=== PATIENT | male | born 1995 | race Caucasian/White ===

== ENCOUNTER 2016-09-26 10:29 | Emergency (ER) | payer OTHER ==
[2016-09-26 10:54] VITALS: BP 124/90; PULSE 56; RESP 16; TEMP 98.4; O2SAT 99
--- NOTE | 2016-09-26 11:29 | UCPHY ---
H & P Time Seen by Provider: 09/26/16 10:44 Patient Type: Established HPI/ROS: 21-year-old male presents complaining of fall at work hitting the back of his head on concrete, now with mild headache initially felt very dazed after his fall. No nausea no vomiting no loss of consciousness. No weakness in legs or arms. Review of systems As per HPI General no fever no chills no weakness HEENT no eye pain no eye discharge. No eye redness, no sore throat Respiratory no cough, no shortness of breath Cardiac no chest pain, no peripheral edema GI no abdominal pain, no diarrhea, no constipation, no nausea, no vomiting no flank pain, no hematuria, no dysuria Musculoskeletal no myalgias, no joint pain Heme no easy bruising, no easy bleeding Endo no polyuria, no polydipsia Skin no rashes, no pruritus Neuro no syncope, no dizziness, positive headaches Psych is no suicidal ideation, no homicidal ideation Past Medical/Surgical History: None Social History: Works for a [employer] Smoking Status: Current every day smoker Physical Exam: 21-year-old male alert and oriented no acute distress nontoxic appearance afebrile HEENT atraumatic normocephalic, extraocular muscles intact, anicteric Mild tenderness to palpation posterior occiput no swelling no ecchymosis Oropharynx negative for erythema negative exudate, tolerating her own secretions Neck supple no meningismus Lungs clear to auscultation bilaterally Heart regular rate and rhythm without murmur rub or gallop Abdomen nondistended normoactive bowel sounds soft nontender Back no CVA tenderness, no step-offs, no spinal tenderness Extremities no cyanosis clubbing or edema Neuro alert and oriented, no focal deficits Constitutional: Initial Vital Signs Temperature (C) 36.9 C 09/26/16 10:52 Heart Rate 56 L 09/26/16 10:52 Respiratory Rate 16 09/26/16 10:52 Blood Pressure 124/90 H 09/26/16 10:52 O2 Sat (%) 99 09/26/16 10:52 O2 Delivery Mode Room Air Allergies/Adverse Reactions: No Known Allergies Allergy (Verified 09/26/16 10:52) Home Medications: Medication Instructions Recorded Ibuprofen [Motrin (*)] 600 mg PO Q6 PRN #30 tab 04/19/15 Medical Decision Making - Diagnostics Imaging: CT brain negative ED Course/Re-evaluation: Patient seen and evaluated for fall hitting the back of the head on concrete Physical exam benign other than mild posterior occipital tenderness to palpation no neck tenderness Normal neuro exam CT brain negative Impression Posterior occipital scalp contusion Concussion Plan Discharge Follow-up occupational health Departure - Departure Disposition: Home, Routine, Self-Care Clinical Impression: Contusion of occipital region of scalp, Concussion Condition: Good Instructions: Concussion (ED), Scalp Contusion in Adults (ED) Referrals: NONE *PRIMARY CARE P,. [Primary Care Provider] - As per Instructions - PQRS PQRS Measurement: na
== END 2016-09-26 11:50 | disposition home or self-care (01) ==
LOC: CED 10:29
DX: S00.03XA Contusion of scalp, initial encounter (principal); S06.0X0A Concussion without loss of consciousness, initial encounter; W19.XXXA Unspecified fall, initial encounter
CPT/HCPCS: 70450-PO; 99215-PO; G0463-PO

== ENCOUNTER 2016-10-10 14:31 | Emergency (ER) | payer OTHER ==
[2016-10-10 15:05] VITALS: BP 106/77; PULSE 79; RESP 14; TEMP 98.1; O2SAT 96
--- NOTE | 2016-10-10 15:48 | UCPHY ---
H & P Patient Type: New Chief Complaint Nursing Narrative: L thigh laceration at work on Sunday night. 14-15 stitches placed at [employer] [facility]. Was told to get it looked at today. no fevers or s/s of infection. Time Seen by Provider: 10/10/16 15:42 HPI/ROS: CHIEF COMPLAINT: Leg laceration HISTORY OF PRESENT ILLNESS: The patient is a 21-year-old man who is 4 days status post laceration to left thigh. He cut it on a blade at work . He works in a [employer]. Who was repaired to [facility] and he was told to come here have it checked. Horizontal mattress sutures were placed and he was placed in a straight leg brace. He has not yet returned to work. He is asking if he can return to work. The laceration was through the skin and fatty tissue. Not into the muscle or tendon. REVIEW OF SYSTEMS: Constitutional: denies: chills, fever, recent illness, recent injury EENTM: denies: blurred vision, double vision, nose congestion Respiratory: denies: cough, shortness of breath Cardiac: denies: chest pain, irregular heart rate, lightheadedness, palpitations Gastrointestinal/Abdominal: denies: abdominal pain, diarrhea, nausea, vomiting, blood streaked stools Genitourinary: denies: dysuria, frequency, hematuria, pain Musculoskeletal: denies: joint pain, muscle pain Skin: See HPI Neurological: denies: headache, numbness, paresthesia, tingling, dizziness, weakness Hematologic/Lymphatic: denies: blood clots, easy bleeding, easy bruising Immunologic/allergic: denies: HIV/AIDS, transplant EXAM: GENERAL: Well-appearing, well-nourished and in no acute distress. HEAD: Atraumatic, normocephalic. EYES: Pupils equal round and reactive to light, extraocular movements intact, sclera anicteric, conjunctiva are normal. ENT: TMs normal, nares patent, oropharynx clear without exudates. Moist mucous membranes. NECK: Normal range of motion, supple without lymphadenopathy or JVD. LUNGS: Breath sounds clear to auscultation bilaterally and equal. No wheezes rales or rhonchi. HEART: Regular rate and rhythm without murmurs, rubs or gallops. ABDOMEN: Soft, nontender, normoactive bowel sounds. No guarding, no rebound. No masses appreciated. BACK: No CVA tenderness, no spinal tenderness, step-offs or deformities EXTREMITIES: Normal range of motion, no pitting or edema. No clubbing or cyanosis. NEUROLOGICAL: Cranial nerves II through XII grossly intact. Normal speech, normal gait. 5/5 strength, normal movement in all extremities, normal sensation PSYCH: Normal mood, normal affect. SKIN: 5 cm laceration horizontally over left thigh. Sutures in place. No sign of erythema or dehiscence or drainage. Nontender. Source: Patient Exam Limitations: No limitations - Personal History Current Tetanus Diphtheria and Acellular Pertussis (TDAP): Yes Tetanus Vaccine Date: 10/06/16 - Medical/Surgical History Hx Asthma: No Hx Chronic Respiratory Disease: No Hx Diabetes: No Hx Cardiac Disease: No Hx Renal Disease: No Hx Cirrhosis: No Hx Alcoholism: No Hx HIV/AIDS: No Hx Splenectomy or Spleen Trauma: No Other PMH: tonsilectomy, concussion - Family History Significant Family History: No pertinent family hx - Social History Smoking Status: Current every day smoker Alcohol Use: Sober Drug Use: None Constitutional: Initial Vital Signs Temperature (C) 36.7 C 10/10/16 15:02 Heart Rate 79 10/10/16 15:02 Respiratory Rate 14 10/10/16 15:02 Blood Pressure 106/77 10/10/16 15:02 O2 Sat (%) 96 10/10/16 15:02 O2 Delivery Mode Room Air Allergies/Adverse Reactions: No Known Allergies Allergy (Verified 10/10/16 15:02) Home Medications: Medication Instructions Recorded NK [No Known Home Meds] 10/10/16 Medical Decision Making ED Course/Re-evaluation: The patient's wound is clean dry and intact. It looks well. I told him he can stop when the brace and return to work but did not do any heavy lifting with his leg. 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 He does not do any lifting. He will return in 1 week for suture removal. Differential Diagnosis: Partial list of the Differential diagnosis considered include but were not limited to; laceration, wound infection and although unlikely based on the history and physical exam, I also considered foreign body, nerve injury, vascular injury, tendon injury. I discussed these differential diagnoses and the plan with the patient as well as the usual and expected course. The patient understands that the diagnosis is provisional and that in medicine we are not always correct and that further workup is often warranted. Usual and customary warnings were given. All of the patient's questions were answered. The patient was instructed to return to the emergency department should the symptoms at all worsen or return, otherwise to followup with the physician as we discussed. Departure - Departure Disposition: Home, Routine, Self-Care Clinical Impression: Encounter for wound care Condition: Fair Instructions: Laceration (ED) Additional Instructions: You may stop wearing the brace, follow up in 1 week for stitches removal. Referrals: NONE *PRIMARY CARE P,. [Primary Care Provider] - As per Instructions - PQRS PQRS Measurement: Not applicable
== END 2016-10-10 15:55 | disposition home or self-care (01) ==
LOC: CED 14:31
DX: S81.812A Laceration without foreign body, left lower leg, initial encounter (principal); W26.9XXA Contact with unspecified sharp object(s), initial encounter; Y99.0 Civilian activity done for income or pay; F17.200 Nicotine dependence, unspecified, uncomplicated
CPT/HCPCS: G0463-PO

== ENCOUNTER 2016-10-17 15:01 | Emergency (ER) | payer OTHER ==
[2016-10-17 15:05] VITALS: BP 118/81; PULSE 84; RESP 16; TEMP 97.5; O2SAT 97
--- NOTE | 2016-10-17 15:31 | UCPHY ---
H & P Time Seen by Provider: 10/17/16 15:12 Patient Type: Established HPI/ROS: This patient returns for a wound check/suture removal 10 days after suture placement. He sustained a laceration from a sharp object at work that he brushed with his leg when he was walking by 10 days ago. He reports no problems with sutures and no pain at this point. ROS: No fevers. No discharge. No other complaints. Smoking Status: Former smoker Physical Exam: Physical Exam Vital signs are normal. General: No acute distress Cardiac: Brisk capillary refill is intact throughout. Skin: No rash or pallor. Sutures in place in left lower lateral leg clean dry intact. Wound is healing well without evidence of infection. There is no significant erythema or warmth to touch. Neuro: Alert and oriented x3 with no sensorimotor deficits. Constitutional: Initial Vital Signs Temperature (C) 36.4 C 10/17/16 15:03 Heart Rate 84 10/17/16 15:03 Respiratory Rate 16 10/17/16 15:03 Blood Pressure 118/81 H 10/17/16 15:03 O2 Sat (%) 97 10/17/16 15:03 O2 Delivery Mode Room Air Allergies/Adverse Reactions: No Known Allergies Allergy (Verified 10/17/16 15:04) Home Medications: Medication Instructions Recorded NK [No Known Home Meds] 10/10/16 MDM/Departure - MDM ED Course/Re-evaluation: Sutures are removed by our tech and I counseled patient regarding wound care. - Depart Disposition: Home, Routine, Self-Care Clinical Impression: Encounter for evaluation of wound Condition: Good Instructions: Acute Wounds (ED) Additional Instructions: Diagnosis: Wound check Plan: Try to keep the Steri-Strips in place for the next 3-5 days Proceed to work as usual. You only to return if he develops redness, discharge or other concerns for infection, or the wound opens and starts bleeding again. Referrals: NONE *PRIMARY CARE P,. [Primary Care Provider] - As per Instructions - PQRS PQRS Measurement: NA
== END 2016-10-17 15:32 | disposition home or self-care (01) ==
LOC: CED 15:01
DX: Z48.02 Encounter for removal of sutures (principal); S81.812D Laceration without foreign body, left lower leg, subsequent encounter
CPT/HCPCS: G0463-PO